=== PATIENT | female | born 1980 | race American Indian/Alaskan Native ===

== ENCOUNTER 2016-10-03 06:23 | Day surgery (SDC) | payer MEDICAID ==
[2016-10-03] MEDS ORDERED: WATER FOR IRRIG STERILE IR ONE (07:15)
[2016-10-03] MEDS ORDERED: DIPRIVAN 10 MG/ML IV ONE (07:20)
--- NOTE | 2016-10-03 07:21 | Anesthesia Consultation ---
Anesthesia Consult and Med Hx Date of service: 10/03/16 - Airway Anesthetic Teeth Evaluation: Good ROM Head & Neck: Adequate Mental/Hyoid Distance: Adequate Mallampati Class: Class II Intubation Access Assessment: Probably Good - Pulmonary Exam CTA: Yes - Cardiac Exam Cardiac Exam: RRR - Pre-Operative Health Status ASA Pre-Surgery Classification: ASA3 Proposed Anesthetic Plan: MAC - Central Nervous System Hx Back Pain: Yes - Gastrointestinal Hx Gastroesophageal Reflux Disease: Yes - Other Systems Hx Obesity: Yes
--- NOTE | 2016-10-03 07:22 | Anesthesia Day of Surgery ---
Anesthesia Day of Surgery - Day of Surgery Patient Examined: Yes Patient H&P Reviewed: Yes Patient is NPO: Yes
[2016-10-03] MEDS ORDERED: NACL 0.9% 1000 ML 1,000 ML IV SCH (08:00)
[2016-10-03] MEDS ORDERED: XYLOCAINE MPF 2% ONE (08:05)
[2016-10-03 08:48] VITALS: BP 133/69
--- NOTE | 2016-10-03 09:17 | Operative Report ---
ATTENDING SURGEON: Louis Harman M.D. YARDAGE CONTROL OPERATOR FORMING: Marty Barrera M.D. PREOPERATIVE DIAGNOSIS: Dyspepsia. POSTOPERATIVE DIAGNOSES: Hiatal hernia. PROCEDURE PERFORMED: Esophagogastroduodenoscopy. INDICATION FOR PROCEDURE: The patient is a 35-year-old female who is morbidly obese and undergoing workup for bariatric surgery. She complains of dyspepsia. After discussing risks and benefits of the procedure, she has had a consent for it. DESCRIPTION OF PROCEDURE: The patient was brought into the endoscopic suite, was placed on the stretcher in the left lateral position. MAC anesthesia was given by the anesthesia team. A timeout was called and the patient and procedure were correct, so we proceeded to start the endoscope into the patient's oropharynx and went down the esophagus into the stomach and traverse the pylorus into the first portion of the duodenum. As we retrieved the endoscope, we assess carefully the mucosa circumferentially. No gross abnormalities were visualized in the duodenum or stomach. Then, the endoscope was retroflexed and the fundus of the stomach and hiatus were examined. A small hiatal hernia was visualized. No other mucosal abnormalities were seen. Then, the endoscope with retrieved into the fundus of the stomach. At this point, the stomach was deflated and the endoscope was drift into the esophagus. Again, the EG junction was visualized above indentation of crura confirming a hiatal hernia type 1 and that the endoscope was completely retrieved from the esophagus into the oropharynx and out of the patient's mouth. This finalized the procedure. The patient tolerated very well the procedure and was sent to endoscopy recovery room. JOB# [id number] ARNOLD/MADELEINE CONNOR
--- NOTE | 2016-10-03 10:56 | Post Anesthesia Evaluation ---
- Post Anesthesia Evaluation Patient Participated: Yes Airway Patent: Yes Stable Respiratory Function: Yes Nausea/Vomiting: No Temp > 96.8F: Yes Pain Manageable: Yes Adequeate Hydration: Yes Anesthesia Complications: No Block Receding Appropriately: Not Applicable Patient on Ventilator: No
== END 2016-10-03 06:24 | disposition home or self-care (01) ==
LOC: GIO 06:23
PROVIDERS: ATTEND Specialist
DX: K44.9 Diaphragmatic hernia without obstruction or gangrene (principal); K21.9 Gastro-esophageal reflux disease without esophagitis; E11.9 Type 2 diabetes mellitus without complications; J45.909 Unspecified asthma, uncomplicated; F32.9 Major depressive disorder, single episode, unspecified; F41.9 Anxiety disorder, unspecified; E66.01 Morbid (severe) obesity due to excess calories; Z68.42 Body mass index [BMI] 45.0-49.9, adult; Z98.51 Tubal ligation status; Z98.890 Other specified postprocedural states; Z82.49 Family history of ischemic heart disease and other diseases of the circulatory system; Z83.3 Family history of diabetes mellitus; Z80.0 Family history of malignant neoplasm of digestive organs
CPT/HCPCS: 43235; 81025; 82962; J2704; J7030

== ENCOUNTER 2016-10-25 07:55 | Inpatient (IN) | payer MEDICAID ==
[2016-10-25 09:16] LABS: Basophils % (Auto) 0.4 % (0.0-1.8); Eosinophils % (Auto) 1.4 % (0.0-4.3); Hematocrit 37.2 % (30.3-42.9); Hemoglobin 11.9 gm/dl (10.1-14.3); Mean Corpuscular HGB Conc 32 % (30-34); Mean Corpuscular Hemoglobin 27 pg (28-32); Mean Corpuscular Volume 83 fl (79-97); Platelet Count 276 K/mm3 (140-440); Red Blood Count 4.46 M/mm3 (3.65-5.03); Red Cell Distribution Width 14.6 % (13.2-15.2); White Blood Count 9.9 K/mm3 (4.5-11.0)
[2016-10-25 09:36] LABS: Alanine Aminotransferase 13 units/L (7-56); Albumin 3.8 g/dL (3.9-5); Alkaline Phosphatase 121 units/L (35-129); Anion Gap 16 mmol/L; BUN/Creatinine Ratio 17.14; Bilirubin,Total 0.3 mg/dL (0.1-1.2); Blood Urea Nitrogen 12 mg/dL (7-17); Calcium 9.4 mg/dL (8.4-10.2); Carbon Dioxide 25 mmol/L (22-30); Glucose 114 mg/dL (65-100); Potassium 4.6 mmol/L (3.6-5.0); Sodium 138 mmol/L (137-145); Total Protein 7.7 g/dL (6.3-8.2)
--- NOTE | 2016-10-25 09:57 | Anesthesia Consultation ---
Anesthesia Consult and Med Hx Date of service: 10/31/16 - Airway Anesthetic Teeth Evaluation: Good ROM Head & Neck: Adequate Mental/Hyoid Distance: Adequate Mallampati Class: Class II Intubation Access Assessment: Good - Pulmonary Exam CTA: Yes - Cardiac Exam Cardiac Exam: No Murmur - Pre-Operative Health Status ASA Pre-Surgery Classification: ASA3 - Pulmonary Hx Asthma: Yes (PER PATIENT SHE DOESN'T HAVE IT) - Central Nervous System Hx Back Pain: Yes (HERNIATED DISC X3) - Gastrointestinal Hx Gastroesophageal Reflux Disease: Yes - Other Systems Hx Obesity: Yes
--- NOTE | 2016-10-27 11:01 | Admit Criteria Form ---
Admission Criteria Documentation: AMBULATORY SURGERY EXCEPTION CRITERIA Ambulatory Surgery Exception Criteria ( Place 'X' for any and all applicable criteria): Surgery or procedure performed on ambulatory basis may require inpatient stay for[A] ANY ONE of the following(1)(2)(3)(4)(5)(6)(7)(8)(9): [X] I. A preoperative situation, condition, or finding that warrants inpatient stay as indicated by ANY ONE of the following: [] a) Inpatient care needed because of severity of a disease or condition rather than the surgery (eg, severe cardiac or respiratory disease, severe infection) (15) (16 ) (17) (18) [] b) Emergent procedure (eg, angioplasty for acute ischemia)(19) [] c) Complex surgical approach or situation as indicated by ANY ONE of the following(3): [] i) Open approach needed instead of usual endoscopic, transcatheter, or other less invasive procedure [] ii) Difficult approach because of previous operation [] iii) Airway monitoring required after open neck procedures(20)(21) [] iv) Large mass requiring unusually extensive dissection [] v) Additional complicating feature requiring inpatient care (eg, drain management)(22(23): [X] d) Major surgery in a pt with high anesthetic risk as indicated by ANY ONE of the following (2)(3)(5)(7)(8): [X] i) ASA risk class III or higher (severe systemic disease impairing function) [D] [] ii) Advanced age (eg, older than 85 years)(14)(24) [] iii) Symptomatic heart failure(25) [] iv) Symptomatic asthma or COPD(8)(21) [] v) Morbid obesity with hemodynamic or respiratory problems(20)( 21)(26)(27) [] vi) Obstructive sleep apnea(20)(21) [] vii) Former premature infants who are younger than 60 weeks [] viii) High risk for severe postoperative abnormalities (eg, severe postoperative hypocalcemia after parathyroidectomy for severe hyperparathyroidism)(27)( 28) [] ix) Unstable angina(25) [] e) Drug-related risk requiring inpatient stay as indicated by ANY ONE of the following(5)(10)(14)(32)(33) [] i) Procedure requires discontinuing drugs or other therapy (eg , antiarrhythmic medication, antiseizure medication), which necessitates inpatient observation or treatment.(18)(31) [] ii) Major surgery and high risk drug use as indicated by ANY ONE of the following: [] 1) Active abuse of cocaine or similar drug [] 2) Monoamine oxidase inhibitor use [] 3) Other drug identified as posing risk [] f) Inadequate outpatient care situation as indicated by ANY ONE of the following(5)(10)(14)(32)(33) [] i) Patient lives remote from medical facility and procedure has urgent complication potential, and temporary nearby residence cannot be arranged [] ii) Patient will have postprocedure incapacitation and inadequate assistance at home, or alternative level of care cannot be arranged. [] iii) Patient will have long general anesthesia or procedure side effect resolution time, and competent person to stay with patient on first postoperative night at home or alternative level of care cannot be arranged. []iv) Other inadequate outpatient situation that cannot be handled by other means [] II. A perioperative event, condition, or finding that warrants inpatient stay as indicated by ANY ONE of the following (1)(2)(3): [] a) Inadequate physiologic recovery: cardiovascular, respiratory, or hemodynamic status not normal or near preoperative baseline(18) [] b) Hemodynamic instability [] c) Patient not alert with near normal or baseline mental status [] d) Temperature not normal or as expected and not appropriate for outpatient treatment of condition [] e) Ambulatory or appropriate activity level status not yet achieved post procedure [E](34)(35)(36) [] f) Operative site not appropriate (eg, unexpected or excessive drainage or bleeding) [] g) Postoperative effects not resolved or adequately managed (eg, significant pain or vomiting not appropriate for outpatient or next level of care)(10)(12) [] h) Complicating features requiring inpatient care as indicated by ANY ONE of the following(37): [] i) Severe complications of procedure (eg, bowel injury, airway compromise, vascular injury,severe hemorrhage) [] ii) Extensive (eg, dissection far beyond usual scope of procedure ) or prolonged (eg, 120 minutes beyond usual) surgery needed requiring inpatient postoperative care [] iii) Conversion to an open or complex procedure that requires inpatient care (eg, open vs laparoscopic cholecystectomy, abdominal vs vaginal hysterectomy)(38) [] iv) Comorbid condition or test result identified during or post procedure that requires inpatient care (7) [] v) Malignant hyperthermia(30) [] vi) Other complicating feature requiring inpatient care(22)(23) Inpatient stay may be needed until ALL of the following are present (1)(2)(3)(4) (5)(6)(10)(14)(33)(40): []a) Physiologic recovery: cardiovascular, respiratory, and hemodynamic status normal or near preoperative baseline []b) Hemodynamic stability []c) Patient alert, with near normal or baseline mental status []d) Temperature appropriate: patient afebrile or temperature appropriate for outpt treatment of condition []e) Activity level appropriate: ambulatory or appropriate activity level post procedure []f) Operative site appropriate as indicated by ALL of the following: []i) Site dry or with expected drainage []ii) Any blood noted is as expected for procedure. []g) Postoperative effects resolved or managed as indicated by ALL of the following: []i) Pain management appropriate for outpatient (or next level of) care(10) []ii) Minimal nausea and vomiting: if present, successfully treated with oral medication(12) []iii) Headache, dizziness, or drowsiness (if present) are mild. []h) Voiding status acceptable as indicated by ANY ONE of the following: []i) Voiding spontaneously []ii) No voiding but instructions given for follow-up in 6 to 8 hours []iii) Urinary catheter in place, and instructions given for follow-up []i) Complicating features requiring inpatient care manageable at a lower level of care(37) []j) Comorbid conditions manageable at a lower level of care(37) The original [employer] content created by [employer] has been revised. The portions of the content which have been revised are identified through the use of italic text or in bold, and [facility] [employer] has neither reviewed nor approved the modified material. All other unmodified content is copyright [employer]. Please see references footnoted in the original [employer] edition 2016 Admission Criteria Met: Yes
[2016-10-30] MEDS ORDERED: LACTATED RINGERS 1,000 ML IV SCH (20:00)
[2016-10-31] MEDS ORDERED: VERSED IV NR ×2 (06:00→09:00)
[2016-10-31] MEDS ORDERED: LACTATED RINGERS 1,000 ML IV SCH ×2 (06:00→09:00)
[2016-10-31] MEDS ORDERED: REGLAN IV NR ×2 (06:00→09:00)
[2016-10-31] MEDS ORDERED: TRANSDERM-SCOP TD NR ×2 (06:00→09:00)
[2016-10-31] MEDS ORDERED: PEPCID IV NR ×2 (06:00→09:00)
[2016-10-31] MEDS ORDERED: PEPCID PO NR (06:00)
[2016-10-31] MEDS ORDERED: FLAGYL 500 MG/100 ML 500 MG/100 ML BAG IV NR (08:00)
[2016-10-31] MEDS ORDERED: LOVENOX SUB-Q NR (08:00)
[2016-10-31] MEDS ORDERED: ANCEF/STERILE WATER 2 GM/20 ML 2 GM/20 ML SYRINGE IV NR (08:00)
[2016-10-31] MEDS ORDERED: PEPCID IV ONE (08:26)
[2016-10-31] MEDS ORDERED: REGLAN ONE (08:26)
[2016-10-31] MEDS ORDERED: DILAUDID ONE (08:47)
[2016-10-31] MEDS ORDERED: DIPRIVAN 10 MG/ML IV ONE (08:47)
[2016-10-31] MEDS ORDERED: ZEMURON IV ONE ×2 (08:47→10:23)
[2016-10-31] MEDS ORDERED: XYLOCAINE MPF 2% ONE (08:47)
[2016-10-31] MEDS ORDERED: TRANSDERM-SCOP TD SCH (09:00)
[2016-10-31] MEDS ORDERED: ZOFRAN ONE (09:54)
[2016-10-31] MEDS ORDERED: ROBINUL ONE (09:54)
[2016-10-31] MEDS ORDERED: NEOSTIGMINE ONE (09:54)
[2016-10-31] MEDS ORDERED: LOVENOX SUB-Q SCH (10:00)
[2016-10-31] MEDS ORDERED: ePHEDrine SULFATE ONE (10:33)
[2016-10-31] MEDS ORDERED: LACTATED RINGERS 1,000 ML ONE (10:49)
[2016-10-31] MEDS ORDERED: NEO SYNEPHRINE ONE (11:07)
[2016-10-31] MEDS ORDERED: NACL 0.9% 100 ML ONE (11:07)
[2016-10-31] MEDS ORDERED: XYLOCAINE 1% 20 mL INFILTRATI ONE (12:00)
[2016-10-31] MEDS ORDERED: MARCAINE-EPI 0.5%-1:200,000 INFILTRATI ONE (12:00)
[2016-10-31] MEDS ORDERED: NACL 0.9% IR ONE ×2 (12:00)
[2016-10-31] MEDS: DILAUDID IV PRN ×4 (12:25→13:00)
--- NOTE | 2016-10-31 12:50 | Anesthesia Day of Surgery ---
Anesthesia Day of Surgery - Day of Surgery Patient Examined: Yes Patient H&P Reviewed: Yes Patient is NPO: Yes
--- NOTE | 2016-10-31 12:56 | Post Anesthesia Evaluation ---
- Post Anesthesia Evaluation Patient Participated: Yes Airway Patent: Yes Stable Respiratory Function: Yes Nausea/Vomiting: No Temp > 96.8F: Yes Pain Manageable: Yes Adequeate Hydration: Yes Anesthesia Complications: No Block Receding Appropriately: Not Applicable
[2016-10-31] MEDS ORDERED: TORADOL IV PRN (13:30)
[2016-10-31] MEDS: MORPHINE IV PRN ×3 (14:53→23:44)
[2016-10-31 15:15] LABS: Alanine Aminotransferase 24 units/L (7-56); Albumin/Globulin Ratio 0.7 %; Alkaline Phosphatase 118 units/L (35-129); Anion Gap 22 mmol/L; Bilirubin,Total 0.2 mg/dL (0.1-1.2); Blood Urea Nitrogen 8 mg/dL (7-17); Calcium 8.8 mg/dL (8.4-10.2); Carbon Dioxide 16 mmol/L (22-30); Chloride 100.2 mmol/L (98-107); Glucose 131 mg/dL (65-100); Potassium 4.1 mmol/L (3.6-5.0); Sodium 134 mmol/L (137-145); Total Protein 7.4 g/dL (6.3-8.2)
[2016-10-31 15:52] LABS: Hemoglobin 11.7 gm/dl (10.1-14.3); Mean Corpuscular HGB Conc 32 % (30-34); Mean Corpuscular Hemoglobin 27 pg (28-32); Mean Corpuscular Volume 84 fl (79-97); Platelet Count 262 K/mm3 (140-440); Red Cell Distribution Width 14.4 % (13.2-15.2)
[2016-10-31 15:53] LABS: White Blood Count 20.6 K/mm3 (4.5-11.0)
[2016-10-31 17:13] LABS: Basophils % (Manual) 0 % (0.0-1.8); Blastocytes % (Manual) 0 %; Eosinophils % (Manual) 0 % (0.0-4.3)
[2016-10-31 17:14] LABS: Anisocytosis 1+; Diff Status Complete; Large Platelets Rare; Platelet Estimate Cons
[2016-10-31] MEDS: ZOFRAN IV PRN (18:45)
[2016-11-01] MEDS: MORPHINE IV PRN (04:59)
[2016-11-01] MEDS: ZOFRAN IV PRN ×2 (05:10→13:23)
[2016-11-01] MEDS: NORCO PO PRN ×2 (08:43→13:05)
[2016-11-01] MEDS ORDERED: LOVENOX SUB-Q SCH (10:00)
[2016-11-01 11:38] LABS: Alanine Aminotransferase 17 units/L (7-56); Albumin 3.2 g/dL (3.9-5); Albumin/Globulin Ratio 0.9 %; Alkaline Phosphatase 109 units/L (35-129); BUN/Creatinine Ratio 11.66; Bilirubin,Total 0.4 mg/dL (0.1-1.2); Blood Urea Nitrogen 7 mg/dL (7-17); Calcium 8.9 mg/dL (8.4-10.2); Carbon Dioxide 23 mmol/L (22-30); Chloride 100.8 mmol/L (98-107); Glucose 105 mg/dL (65-100); Potassium 3.8 mmol/L (3.6-5.0); Sodium 136 mmol/L (137-145); Total Protein 6.8 g/dL (6.3-8.2)
[2016-11-01 11:39] LABS: Anion Gap 16 mmol/L; Eosinophils % (Auto) 0.3 % (0.0-4.3); Hemoglobin 11.3 gm/dl (10.1-14.3); Mean Corpuscular HGB Conc 32 % (30-34); Mean Corpuscular Hemoglobin 27 pg (28-32); Mean Corpuscular Volume 84 fl (79-97); Platelet Count 252 K/mm3 (140-440); Red Blood Count 4.19 M/mm3 (3.65-5.03); Red Cell Distribution Width 14.2 % (13.2-15.2); White Blood Count 15.8 K/mm3 (4.5-11.0)
--- NOTE | 2016-11-01 12:20 | Discharge Summary ---
Providers - Providers Date of Admission: 10/31/16 06:22 Date of discharge: 11/01/16 Attending physician: JADE ELLIS Primary care physician: ERP IMPLEMENTATION CONSULTANT Hospitalization Reason for admission: overnight observation Condition: Stable Disposition: DISCHARGED TO HOME OR SELFCARE Core Measure Documentation - Palliative Care Palliative Care/ Comfort Measures: Not Applicable - Core Measures Any of the following diagnoses?: none Exam - Physical Exam Narrative exam: NAD Lungd CTA BL Heart RRR Abd, soft, some TTP around wounds. Wounds c/d/i Neuro AAOx3 - Constitutional Vitals: Temp Pulse Resp BP Pulse Ox 98.2 F 91 H 18 129/94 100 11/01/16 08:00 11/01/16 08:00 11/01/16 08:00 11/01/16 08:00 11/01/16 09:48 Plan Activity: advance as tolerated Diet: other (bariatric stage 1) Special Instructions: no heavy lifting Follow up with: PRIMARY CARE, [Primary Care Provider] - 7 Days
[2016-11-01 14:19] LABS: Magnesium 2.1 mg/dL (1.7-2.3); Phosphorous 4.6 mg/dL (2.5-4.5)
[2016-11-01 14:39] VITALS: BP 121/91
== END 2016-11-01 15:48 | disposition home or self-care (01) | DRG 327 ==
LOC: 3A 07:55 → UNDOADMIN 07:55 → 3A 10-31 06:22 → 2B-SURG 10-31 12:50
PROVIDERS: ADMIT Specialist; ATTEND Specialist
PROC: 0D194ZB Bypass Duodenum to Ileum, Percutaneous Endoscopic Approach (ICD-10-PCS; principal; 2016-11-01)
PROC: 0DB64Z3 Excision of Stomach, Percutaneous Endoscopic Approach, Vertical (ICD-10-PCS; principal; 2016-11-01)
PROC: 0BQS4ZZ (ICD-10-PCS; principal; 2016-11-01)
PROC: 0BQR4ZZ (ICD-10-PCS; principal; 2016-11-01)
PROC: 0D1B4ZB Bypass Ileum to Ileum, Percutaneous Endoscopic Approach (ICD-10-PCS; principal; 2016-11-01)
DX: K21.9 Gastro-esophageal reflux disease without esophagitis (principal); Z68.42 Body mass index [BMI] 45.0-49.9, adult; G47.30 Sleep apnea, unspecified; E66.01 Morbid (severe) obesity due to excess calories; J45.909 Unspecified asthma, uncomplicated; Z88.7 Allergy status to serum and vaccine; E11.9 Type 2 diabetes mellitus without complications; F32.9 Major depressive disorder, single episode, unspecified; K44.9 Diaphragmatic hernia without obstruction or gangrene
CPT/HCPCS: 36415; 80053; 81025; 82962; 83735; 84100; 84703; 85007; 85025; 88307; A4217; C9250; J0690; J1170; J1650; J1885; J2250; J2270; J2370; J2405; J2704; J2710; J2765; J7120

== ENCOUNTER 2016-11-01 22:08 | Emergency (ER) | payer MEDICAID ==
[2016-11-01 22:22] VITALS: BP 128/75
[2016-11-02] MEDS ORDERED: ZOFRAN ONE (01:51)
[2016-11-02] MEDS ORDERED: MORPHINE ONE (01:51)
[2016-11-02] MEDS ORDERED: DILAUDID ONE (03:39)
--- NOTE | 2016-11-02 05:52 | Emergency Department Report ---
HPI - General Chief Complaint: Abdominal Pain Time Seen by Provider: 11/02/16 01:40 - HPI HPI: This is a 35-year-old Afro-Italian female presents to the emergency department with complaint of generalized abdominal pain status post laparoscopic gastric sleeve surgery that occurred yesterday, Sunday. The patient has not taken any pain medication as she says she was not prescribed anything upon discharge. The surgery was done by Dr. Harman. She called the office of Dr. Harman and was told that she was supposed to get some pain medication written to her in preop, but she never did. She denies any fever. Patient says that the pain also radiates to her back. She says that she has been having this pain even prior to discharge from the hospital, which was earlier today. Her primary care doctor is a Dr. Brody. ED Past Medical Hx - Past Medical History Previous Medical History?: Yes Hx Diabetes: Yes Hx GERD: Yes Hx Arthritis: Yes (HIPS) Hx Headaches / Migraines: Yes (MIGAINES) Hx Asthma: Yes (PER PATIENT SHE DOESN'T HAVE IT) - Surgical History Past Surgical History?: Yes Additional Surgical History: s/p gastric sleeve 10/31/16 - Social History Smoking Status: Never Smoker Substance Use Type: None - Medications Home Medications: Home Medications Medication Instructions Recorded Confirmed Last Taken Type Gabapentin 800 mg PO TID 09/29/16 10/31/16 10/27/16 History Motrin 800 MG tab 800 mg PO TID 09/29/16 10/31/16 10/02/16 History Nortriptyline 75 mg PO DAILY 09/29/16 10/31/16 10/27/16 History Omeprazole 40 mg PO AC 09/29/16 10/31/16 10/28/16 History SEROquel 100 mg PO HS 09/29/16 10/31/16 10/24/16 History Vitamin B Complex 1 tab PO DAILY 09/29/16 10/31/16 10/24/16 History Vitamin C 1 tab PO DAILY 09/29/16 10/31/16 10/24/16 History metFORMIN 500 mg PO BID 09/29/16 10/31/16 10/24/16 History tiZANidine 4 mg PO TID 10/02/16 10/31/16 10/24/16 History ED Review of Systems ROS: Stated complaint: POST SURGERY PAIN Other details as noted in HPI Comment: All other systems reviewed and negative Constitutional: denies: chills, fever Eyes: denies: eye pain, eye discharge, vision change ENT: denies: ear pain, throat pain Respiratory: denies: cough, shortness of breath, wheezing Cardiovascular: denies: chest pain, palpitations Gastrointestinal: abdominal pain, nausea. denies: vomiting Genitourinary: denies: urgency, dysuria, discharge Musculoskeletal: back pain. denies: arthralgia Skin: denies: rash, lesions Neurological: denies: headache, weakness, paresthesias Physical Exam - Physical Exam Vital Signs: Vital Signs 11/01/16 22:15 Temperature 98.3 F Pulse Rate 97 H Respiratory 16 Rate Blood Pressure 128/75 O2 Sat by Pulse 100 Oximetry Physical Exam: GENERAL: The patient is well-developed well-nourished. HEENT: Normocephalic. Atraumatic. Extraocular motions are intact. Patient has moist mucous membranes. Pupils equal reactive to light bilaterally. NECK: Supple. Trachea is midline. CHEST/LUNGS: Clear to auscultation. There is no respiratory distress noted. HEART/CARDIOVASCULAR: Regular. There is no tachycardia. There is no gallop rub or murmur. ABDOMEN: Abdomen is soft. Patient has some generalized tenderness to palpation of the abdomen. The laparoscopic ports are seen but do not appear to show any signs of infection. Patient has normal bowel sounds. Morbidly obese habitus. SKIN: Warm and dry. NEURO: The patient is awake, alert, and oriented. The patient is cooperative. The patient has no focal neurologic deficits. The patient has normal speech. MUSCULOSKELETAL: There is no tenderness or deformity. There is no limitation range of motion. There is no evidence of acute injury. ED Course Vital Signs 11/01/16 22:15 Temperature 98.3 F Pulse Rate 97 H Respiratory 16 Rate Blood Pressure 128/75 O2 Sat by Pulse 100 Oximetry - Consultations Consultation #1: I spoke with the PA for Dr. Harman, the bariatric surgeon who did the gastric sleeve. She says that this patient has an appointment this morning at [address] Harman and they will be happy to write her for pain medication. They' re not concerned about the patient's leukocytosis. 11/02/16 07:06 ED Medical Decision Making - Radiology Data Radiology results: image reviewed interpreted by me: X-ray of the abdomen shows some nonspecific nonobstructive bowel gas. - Medical Decision Making 35-year-old female presents the emergency department with continued abdominal pain that is been going on since the patient had her laparoscopic gastric sleeve surgery a few days ago. The patient never got the pain medication that was supposed to be written for her from preop surgery. Patient was given a few doses of pain medication and is feeling improved. Her labs show a leukocytosis of 18,000 but the gastric surgery team is not concerned about this and feels that it is just reactive to the patient's recent surgery. Abdominal x-ray shows some nonspecific nonobstructive bowel gas. Patient has an appointment at 11 AM this morning with her bariatric surgeon. She will return to the ER with any worsening of her symptoms or any acute distress. Critical Care Time: No Critical care attestation.: If time is entered above; I have spent that time in minutes in the direct care of this critically ill patient, excluding procedure time. ED Disposition Clinical Impression: Postoperative pain Abdominal pain Qualifiers: Abdominal location: generalized Qualified Code(s): R10.84 - Generalized abdominal pain Disposition: DISCHARGED TO HOME OR SELFCARE Is pt being admited?: No Condition: Stable Instructions: Abdominal Pain (ED) Referrals: PRIMARY CAREMD [Primary Care Provider] - 3-5 Days Time of Disposition: 07:09
--- NOTE | 2016-11-02 07:23 | XRay Report ---
Flat and upright of abdomen: History: Abdominal pain. Findings: Moderate amount of air in small bowel with minimal air in large bowel. Multiple small air-fluid levels in small bowel. No radiopaque calculus or abnormal calcification. Impression: Probable incomplete small bowel obstruction.
== END 2016-11-02 04:35 | disposition home or self-care (01) ==
LOC: ED 22:08
DX: R10.84 Generalized abdominal pain (principal); G89.18 Other acute postprocedural pain; E11.9 Type 2 diabetes mellitus without complications; K21.9 Gastro-esophageal reflux disease without esophagitis; G43.909 Migraine, unspecified, not intractable, without status migrainosus; J45.909 Unspecified asthma, uncomplicated
CPT/HCPCS: 74020; 99283; J1170; J2270; J2405

== ENCOUNTER 2016-12-26 06:20 | Day surgery (SDC) | payer MEDICAID ==
[2016-12-26] MEDS ORDERED: NACL 0.9% 1000 ML 1,000 ML IV SCH (08:00)
[2016-12-26] MEDS ORDERED: ZOFRAN IV NR (08:00)
[2016-12-26] MEDS ORDERED: ZOFRAN IV ONE (08:09)
[2016-12-26] MEDS ORDERED: DIPRIVAN 10 MG/ML IV ONE ×2 (09:02→09:03)
[2016-12-26] MEDS ORDERED: XYLOCAINE 2% INFILTRATI ONE (09:03)
--- NOTE | 2016-12-26 09:23 | Anesthesia Consultation ---
Anesthesia Consult and Med Hx Date of service: 12/26/16 - Airway Anesthetic Teeth Evaluation: Good ROM Head & Neck: Adequate Mental/Hyoid Distance: Adequate Mallampati Class: Class II Intubation Access Assessment: Probably Good - Pulmonary Exam CTA: Yes - Cardiac Exam Cardiac Exam: RRR - Pre-Operative Health Status ASA Pre-Surgery Classification: ASA4 Proposed Anesthetic Plan: MAC - Pulmonary Hx Asthma: Yes (PER PATIENT SHE DOESN'T HAVE IT) COPD: No - Central Nervous System Hx Back Pain: Yes (HERNIATED DISC X3) - Gastrointestinal Hx Gastroesophageal Reflux Disease: Yes - Other Systems Hx Obesity: Yes - Additional Comments Anesthesia Medical History Comments: Currently has blood clot in right arm. N/V and cant eat, food sits and comes back up. SBO on the 31 of october. aneurys, chronic pain disorder, arthritis both hips
--- NOTE | 2016-12-26 09:23 | Anesthesia Day of Surgery ---
Anesthesia Day of Surgery - Day of Surgery Patient Examined: Yes Patient H&P Reviewed: Yes Patient is NPO: Yes
[2016-12-26] MEDS ORDERED: WATER FOR IRRIG STERILE IR ONE (11:58)
[2016-12-26 13:02] VITALS: BP 146/76
--- NOTE | 2016-12-26 14:31 | Operative Report ---
Operative Report Operative Report: OPERATIVE REPORT - EGD DATE 12/26/2016 SURGERY: Upper endoscopy. SURGEON: Louis Harman MD PET CAREGIVER: Marty Barrera MD PRE OP DX: dysphagia POST OP DX: same TYPE OF ANESTHESIA: MAC. ESTIMATED BLOOD LOSS: None. COMPLICATIONS: None. SPECIMENS REMOVED: None. FINDINGS: 1. Sleeve gastrectomy and single loop duodeno-jejunostomy 2. Otherwise, normal esophagus, stomach and post pyloric area INDICATIONS:INDICATION FOR PROCEDURE: Patient is a 26-year-old female with a history of morbid obesity and recent SIPS procedure. She has been complaining of some dysphagia to solids but able to take fluids. Here for diagnostic EGD PROCEDURE DETAILS: After consent was reviewed, patient was taken back to the operating room where patient was placed in the left lateral decubitus position and a bite block was placed in the mouth. After a time-out was called, MAC anesthesia was initiated. I then passed the endoscope into her oropharynx, into her esophagus, visualized the entire esophagus, which was all within normal limits. I then visualized the stomach and the first portion of the duodenum with loop duodeno-jejunostomy and there were no abnormalities I could clearly visualize except for normal sleeve anatomy with some acute angulation at the level of the incisura angularis. Easy passage of scope aling the sleeve and past duodeno-jejunostomy which appears patent I then desufflated the stomach and removed the endoscope. Patient tolerated procedure well and was transferred to recovery room in good and stable condition.
--- NOTE | 2016-12-26 14:32 | Discharge Summary ---
Providers - Providers Date of discharge: 12/26/16 Attending physician: JADE ELLIS Primary care physician: CHAPARRO NEAL Hospitalization Reason for admission: outpateint EGD Condition: Stable Procedures: EGD Disposition: DISCHARGED TO HOME OR SELFCARE Core Measure Documentation - Palliative Care Palliative Care/ Comfort Measures: Not Applicable - Core Measures Any of the following diagnoses?: none Exam - Physical Exam Narrative exam: unchanged from preop - Constitutional Vitals: Temp Pulse Resp BP Pulse Ox 98.8 F 78 16 146/76 100 12/26/16 12:29 12/26/16 12:59 12/26/16 12:59 12/26/16 12:59 12/26/16 12:59 Plan Activity: advance as tolerated Diet: low carbohydrate Special Instructions: no heavy lifting Follow up with: CHAPARRO NEAL MD [Primary Care Provider] - 7 Days
== END 2016-12-26 06:21 | disposition home or self-care (01) ==
LOC: GIO 06:20
PROVIDERS: ATTEND Specialist
DX: R13.10 Dysphagia, unspecified (principal); J45.909 Unspecified asthma, uncomplicated; E11.9 Type 2 diabetes mellitus without complications; K21.9 Gastro-esophageal reflux disease without esophagitis; E66.01 Morbid (severe) obesity due to excess calories; Z90.3 Acquired absence of stomach [part of]
CPT/HCPCS: 43235; 81025; 96374; J2405; J2704; J7030

== ENCOUNTER 2017-02-27 06:25 | Day surgery (SDC) | payer MEDICAID ==
[2017-02-27] MEDS ORDERED: WATER FOR IRRIG STERILE IR ONE (06:59)
[2017-02-27] MEDS ORDERED: NACL 0.9% 1000 ML 1,000 ML IV SCH (07:00)
[2017-02-27] MEDS ORDERED: DIPRIVAN 10 MG/ML IV ONE ×4 (07:15→08:35)
[2017-02-27] MEDS ORDERED: XYLOCAINE 2% INFILTRATI ONE (07:16)
--- NOTE | 2017-02-27 07:31 | Anesthesia Consultation ---
Anesthesia Consult and Med Hx Date of service: 02/27/17 - Airway Anesthetic Teeth Evaluation: Good ROM Head & Neck: Adequate Mental/Hyoid Distance: Inadequate Mallampati Class: Class III Intubation Access Assessment: Possibly Difficult - Pulmonary Exam CTA: Yes - Cardiac Exam Cardiac Exam: RRR - Pre-Operative Health Status ASA Pre-Surgery Classification: ASA3 Proposed Anesthetic Plan: MAC - Pulmonary Hx Smoking: No COPD: No - Cardiovascular System Hx Hypertension: No - Central Nervous System Hx Neuromuscular Disorder: Yes (fibromyalgia) Hx Back Pain: Yes (HERNIATED DISC X3, edema BLE) - Gastrointestinal Hx Gastroesophageal Reflux Disease: Yes - Endocrine Hx Insulin Dependent Diabetes: No - Hematic Hx Anemia: Yes - Other Systems Hx Alcohol Use: No Hx Substance Use: No Hx Cancer: No Hx Obesity: Yes
--- NOTE | 2017-02-27 07:31 | Anesthesia Day of Surgery ---
Anesthesia Day of Surgery - Day of Surgery Patient Examined: Yes Patient H&P Reviewed: Yes Patient is NPO: Yes
[2017-02-27] MEDS ORDERED: PEPCID IV ONE (07:55)
[2017-02-27] MEDS ORDERED: VERSED ONE (07:59)
[2017-02-27] MEDS ORDERED: SUBLIMAZE ONE (08:00)
[2017-02-27] MEDS ORDERED: ROBINUL ONE ×3 (08:21→08:54)
[2017-02-27] MEDS ORDERED: QUELICIN ONE (08:22)
[2017-02-27] MEDS ORDERED: ZEMURON IV ONE (08:22)
[2017-02-27] MEDS ORDERED: DECADRON ONE (08:31)
[2017-02-27] MEDS ORDERED: ZOFRAN ONE (08:31)
[2017-02-27] MEDS ORDERED: BREVIBLOC IV ONE (08:41)
[2017-02-27] MEDS ORDERED: NEOSTIGMINE ONE (08:54)
--- NOTE | 2017-02-27 09:21 | Discharge Summary ---
Providers - Providers Date of discharge: 02/27/17 Attending physician: JADE ELLIS Primary care physician: CHAPARRO NEAL Hospitalization Reason for admission: outpatiend endoscopic dilation of gastric sleeve Condition: Stable Disposition: DC-01 TO HOME OR SELFCARE Core Measure Documentation - Palliative Care Palliative Care/ Comfort Measures: Not Applicable - Core Measures Any of the following diagnoses?: none Exam - Physical Exam Narrative exam: unchanged from preop - Constitutional Vitals: Temp Pulse Resp BP Pulse Ox 97.6 F 90 18 126/81 98 02/27/17 07:46 02/27/17 07:46 02/27/17 07:46 02/27/17 07:46 02/27/17 07:46 Plan Activity: advance as tolerated Diet: low carbohydrate Follow up with: CHAPARRO NEAL MD [Primary Care Provider] - 7 Days
[2017-02-27] MEDS ORDERED: DILAUDID ONE ×3 (09:28→10:41)
[2017-02-27] MEDS: DILAUDID IV PRN ×4 (10:00→10:55)
[2017-02-27] MEDS ORDERED: TORADOL ONE (10:58)
[2017-02-27] MEDS ORDERED: TORADOL IV ONE (11:00)
--- NOTE | 2017-02-27 11:20 | Fluoroscopy Report ---
FLUOROSCOPY ESOPHAGEAL DILATATION History: Gastric sleeve stricture. Findings: Fluoroscopy was provided by radiology during esophageal dilatation by Dr. Barrera. 3 fluoroscopic images were captured and which demonstrates placement of a balloon dilatation catheter near the GE junction. Please correlate with the procedural notes. Impression: Successful esophageal dilatation under fluoroscopy.
[2017-02-27 11:49] VITALS: BP 121/78
--- NOTE | 2017-02-27 16:02 | Operative Report ---
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 POSTOPERATIVE DIAGNOSIS: [place] stricture of gastric sleeve. OPERATION PERFORMED: Endoscopic balloon dilation of gastric sleeve stricture under fluoroscopic guidance. INDICATION FOR PROCEDURE: The patient is a 36-year-old female underwent a sleeve plus procedure laparoscopically around October this year and subsequently she developed dysphagia and reflux regurgitation of ingested food. 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 After discussing risks and benefits of the procedure, she signed the consent for it. DESCRIPTION OF PROCEDURE: The patient was brought to the operating room and placed on the operating table in supine position. General endotracheal tube anesthesia was given by the Anesthesia Team. Then we proceeded to place bite block and timeout was called, the patient and procedure were correct. Then we proceeded to pass the endoscope into the esophagus. The patient's stomach visualizing the helix type of stricture on the gastric sleeve. We passed the pylorus and we reached the duodenojejunostomy. The duodenojejunostomy appeared wide open and no stricturing at that level. The efferent limb looked normal, so then we slowly retrieved the endoscope, visualizing the distal portion of the helix stricture and using fluoroscopic guidance, we marked that with a paperclip on the patient's abdomen. Then, we proceeded to retrieve the endoscope for up into the proximal level of this helix stricture, which was closed to EG junction and we also marked that with a paperclip. We noticed that it was approximately 10 cm length, so we proceeded to advance the endoscope again into the efferent limb and passed a Savary wire through the channel of the endoscope, then the endoscope was removed, leaving the wire in place, then over a wire, we passed a Rigiflex II [employer] balloon dilator 3 cm in size and 10 cm long, confirmed under fluoroscopic guidance when the balloon was in the appropriate position or the wanted position, we proceeded to inflate up to 20 PSI and leave it inflated for 60 seconds and then the balloon was deflated, retrieved and the endoscope was passed again. We noticed mild blanching of the area due to the expected mucosal ischemia confirming appropriate dilation. Then we proceeded to do the same maneuver passing the endoscope without wire and floating the balloon again into the correct position or under fluoroscopic guidance and we proceeded to dilate it one more time, then the balloon was deflated after one minute and it was retrieved and everything was confirmed to be blanching as well. A third dilation was performed in the same manner. After doing these, there was no active bleeding of that mucosa and just a mild ecchymosis and at this time we completed the dilations, we retrieved the balloon, the endoscope and the bite block. The patient tolerated very well the procedure, and was sent to recovery room. The attending, Dr. Harman was present throughout the garcia portion of procedure. Instrument and lap count was correct x 2.
== END 2017-02-27 06:26 | disposition home or self-care (01) ==
LOC: GIO 06:25
PROVIDERS: ATTEND Specialist
DX: K95.89 Other complications of other bariatric procedure (principal); K21.9 Gastro-esophageal reflux disease without esophagitis; D64.9 Anemia, unspecified; E66.9 Obesity, unspecified; Z68.37 Body mass index [BMI] 37.0-37.9, adult; Z86.718 Personal history of other venous thrombosis and embolism; Z88.8 Allergy status to other drugs, medicaments and biological substances; Z88.7 Allergy status to serum and vaccine; Z91.09 Other allergy status, other than to drugs and biological substances; Y83.2 Surgical operation with anastomosis, bypass or graft as the cause of abnormal reaction of the patient, or of later complication, without mention of misadventure at the time of the procedure
CPT/HCPCS: 43245; 74360; 81025; C1726; J0330; J1100; J1170; J1885; J2250; J2405; J2704; J2710; J3010; J7030

== ENCOUNTER 2017-06-10 23:40 | Emergency (ER) | payer MEDICAID ==
[2017-06-11 00:30] LABS: Basophils % (Auto) 0.4 % (0.0-1.8); Eosinophils % (Auto) 2.1 % (0.0-4.3); Hematocrit 30.8 % (30.3-42.9); Hemoglobin 9.8 gm/dl (10.1-14.3); Mean Corpuscular HGB Conc 32 % (30-34); Mean Corpuscular Volume 77 fl (79-97); Platelet Count 291 K/mm3 (140-440); Red Blood Count 4.01 M/mm3 (3.65-5.03); White Blood Count 10.9 K/mm3 (4.5-11.0)
[2017-06-11 00:31] LABS: Mean Corpuscular Hemoglobin 24 pg (28-32)
[2017-06-11 00:38] LABS: Alanine Aminotransferase 12 units/L (7-56); Albumin 3.3 g/dL (3.9-5); Albumin/Globulin Ratio 0.9 %; Alkaline Phosphatase 122 units/L (35-129); Anion Gap 19 mmol/L; BUN/Creatinine Ratio 8; Blood Urea Nitrogen 3 mg/dL (7-17); Calcium 9.1 mg/dL (8.4-10.2); Carbon Dioxide 24 mmol/L (22-30); Chloride 98.3 mmol/L (98-107); Glucose 88 mg/dL (65-100); Lipase 46 units/L (13-60); Potassium 3.4 mmol/L (3.6-5.0); Sodium 138 mmol/L (137-145); Total Protein 7.1 g/dL (6.3-8.2)
[2017-06-11 01:26] LABS: Bilirubin,Urine NEG (Negative); Blood,Urine NEG (Negative); Ketones,Urine 20 mg/dL (Negative); Leukocyte Esterase,Urine TR (Negative); Mucus,Urine 2+ /HPF; Nitrite,Urine NEG (Negative); Protein,Urine <15 mg/dL mg/dL (Negative); Urobilinogen,Urine < 2.0 mg/dL (<2.0)
[2017-06-11] MEDS ORDERED: ZOFRAN ODT ONE (04:08)
[2017-06-11] MEDS ORDERED: ZOFRAN ODT PO ONE (04:09)
[2017-06-11] MEDS ORDERED: ZOFRAN IV ONE ×3 (06:17→13:03)
[2017-06-11] MEDS ORDERED: NACL 0.9% 1000 ML 1,000 ML IV ONE (06:17)
[2017-06-11] MEDS ORDERED: MORPHINE IV ONE ×3 (06:17→11:39)
--- NOTE | 2017-06-11 06:22 | Emergency Department Report ---
ED Abdominal Pain HPI - General Chief Complaint: Abdominal Pain Stated Complaint: INCISION LEAKING,ABDOMINAL PAIN Time Seen by Provider: 06/11/17 06:03 Source: patient Mode of arrival: Ambulatory Limitations: No Limitations - History of Present Illness Initial Comments: 36-year-old female with recent gastric sleeve revision done by Dr. Harman here at [facility] with complaint of diffuse lower abdominal pain nausea vomiting. Patient states she is discharged from the hospital on Sunday. Over the weekend she continued to have trouble keeping any food down. Denies fevers chills nausea vomiting. She complains some blistering around the surgical sites. MD Complaint: abdominal pain -: Gradual, days(s) (2) Location: diffuse, LLQ, RLQ Radiation: none Migration to: no migration Severity: moderate Severity scale (0 -10): 10 Quality: aching Improves With: nothing Worsens With: nothing Context: recent surgery/procedure Associated Symptoms: nausea, vomiting. denies: diarrhea, fever, chills, constipation, dysuria, hematemesis - Related Data Home Medications Medication Instructions Recorded Confirmed Last Taken Acetaminophen with Codeine 5 ml PO PRN PRN 06/01/17 06/11/17 Unknown [Acetaminop-Codeine 120-12 mg/5] Cyclobenzaprine [Flexeril] 10 mg PO TID PRN 06/01/17 06/11/17 Unknown Ferrous Sulfate [Ferrous Sulfate] 325 mg PO DAILY 06/01/17 06/11/17 Unknown Previous Rx's Medication Instructions Recorded Last Taken Type Ondansetron [Zofran Odt] 4 mg PO TID #10 tab.rapdis 06/11/17 Unknown Rx Promethazine [Phenergan TAB] 25 mg PO Q8HR PRN #15 tab 06/11/17 Unknown Rx Allergies Allergy/AdvReac Type Severity Reaction Status Date / Time Tetanus Vaccines and Toxoid Allergy Intermediate Rash, Verified 06/01/17 14:25 [Tetanus Vaccines & Toxoid] Swelling adhesive tape Allergy Rash Verified 06/01/17 14:25 metoclopramide HCl Allergy AGITATED,VIOLENT Verified 06/01/17 14:25 [From Reglan] FEELINGS FAT LIPIDS Allergy Mild Vomiting Uncoded 12/26/16 07:59 ED Review of Systems ROS: Stated complaint: INCISION LEAKING,ABDOMINAL PAIN Other details as noted in HPI Comment: All other systems reviewed and negative Constitutional: weakness. denies: chills, fever Respiratory: denies: cough, orthopnea Cardiovascular: denies: chest pain, palpitations Gastrointestinal: abdominal pain, nausea, vomiting. denies: diarrhea, constipation, hematemesis, melena, hematochezia Genitourinary: denies: urgency, dysuria Musculoskeletal: denies: back pain Skin: denies: rash, lesions ED Past Medical Hx - Past Medical History Previous Medical History?: Yes Hx Hypertension: No Hx Diabetes: No Hx Deep Vein Thrombosis: Yes (Right arm) Hx GERD: Yes Hx Arthritis: Yes (Bilateral hip, L ankle) Hx Headaches / Migraines: Yes (MIGAINES) Hx Asthma: Yes (PER PATIENT SHE DOESN'T HAVE IT) Hx COPD: No Hx HIV: No Additional medical history: Gastric sleeve October 2016. Distant history of tubal ligation - Surgical History Past Surgical History?: Yes Additional Surgical History: s/p gastric sleeve 10/31/16 - Family History Family history: no significant - Social History Smoking Status: Never Smoker Substance Use Type: None - Medications Home Medications: Home Medications Medication Instructions Recorded Confirmed Last Taken Type Acetaminophen with Codeine 5 ml PO PRN PRN 06/01/17 06/11/17 Unknown History [Acetaminop-Codeine 120-12 mg/5] Cyclobenzaprine [Flexeril] 10 mg PO TID PRN 06/01/17 06/11/17 Unknown History Ferrous Sulfate [Ferrous Sulfate] 325 mg PO DAILY 06/01/17 06/11/17 Unknown History Ondansetron [Zofran Odt] 4 mg PO TID #10 tab.rapdis 06/11/17 Unknown Rx Promethazine [Phenergan TAB] 25 mg PO Q8HR PRN #15 tab 06/11/17 Unknown Rx ED Physical Exam - General Limitations: No Limitations General appearance: alert, in no apparent distress, obese - Head Head exam: Present: atraumatic, normocephalic - Eye Eye exam: Present: normal appearance. Absent: scleral icterus, conjunctival injection Pupils: Present: normal accommodation - ENT ENT exam: Present: mucous membranes dry - Neck Neck exam: Absent: lymphadenopathy - Respiratory Respiratory exam: Present: normal lung sounds bilaterally. Absent: respiratory distress, wheezes - Cardiovascular Cardiovascular Exam: Present: regular rate, normal rhythm. Absent: systolic murmur, diastolic murmur, rubs, gallop - GI/Abdominal GI/Abdominal exam: Present: soft, tenderness, guarding (mild voluntary), normal bowel sounds, other (multiple well-healed surgical incisions, 2 have blistering that do not appear infected). Absent: distended, rebound - Extremities Exam Extremities exam: Present: normal inspection - Back Exam Back exam: Present: normal inspection - Neurological Exam Neurological exam: Present: alert, oriented X3 - Psychiatric Psychiatric exam: Present: normal affect, normal mood - Skin Skin exam: Present: warm, dry, intact, normal color. Absent: rash ED Course Vital Signs 06/10/17 06/11/17 06/11/17 23:49 04:14 04:15 Temperature 97.9 F 98.6 F 98.6 F Pulse Rate 94 H 92 H 92 H Respiratory 17 20 20 Rate Blood Pressure 136/87 137/88 Blood Pressure 137/88 [Right] O2 Sat by Pulse 99 100 100 Oximetry 06/11/17 06/11/17 06/11/17 06:17 07:48 07:54 Temperature 98.6 F Pulse Rate 94 H 90 Respiratory 18 18 20 Rate Blood Pressure Blood Pressure 134/79 138/91 [Right] O2 Sat by Pulse 100 100 Oximetry 06/11/17 06/11/17 06/11/17 08:18 10:15 11:35 Temperature Pulse Rate 88 Respiratory 18 16 16 Rate Blood Pressure Blood Pressure 120/96 [Right] O2 Sat by Pulse 100 Oximetry 06/11/17 06/11/17 06/11/17 11:39 12:00 13:00 Temperature 98.5 F Pulse Rate 84 84 Respiratory 18 16 16 Rate Blood Pressure Blood Pressure 119/75 120/74 [Right] O2 Sat by Pulse 100 99 Oximetry ED Medical Decision Making - Lab Data Result diagrams: 06/10/17 23:58 06/10/17 23:58 Laboratory Results - last 24 hr 06/10/17 06/10/17 06/11/17 23:58 23:58 00:40 WBC 10.9 RBC 4.01 Hgb 9.8 L Hct 30.8 D MCV 77 L MCH 24 L MCHC 32 RDW 17.0 H Plt Count 291 Lymph % (Auto) 24.7 [place] % (Auto) 5.6 Eos % (Auto) 2.1 Baso % (Auto) 0.4 Lymph # 2.7 [place] # 0.6 Eos # 0.2 Baso # 0.0 Seg Neutrophils % 67.2 Seg Neutrophils # 7.3 Sodium 138 Potassium 3.4 L Chloride 98.3 Carbon Dioxide 24 Anion Gap 19 BUN 3 L Creatinine 0.4 L Estimated GFR > 60 BUN/Creatinine Ratio 8 Glucose 88 Calcium 9.1 Total Bilirubin 0.40 AST 24 ALT 12 Alkaline Phosphatase 122 Total Protein 7.1 Albumin 3.3 L Albumin/Globulin Ratio 0.9 Lipase 46 Urine Color Yellow Urine Turbidity Clear Urine pH 7.0 Ur Specific [place] 1.014 Urine Protein <15 mg/dl Urine Glucose (UA) Neg Urine Ketones 20 Urine Blood Neg Urine Nitrite Neg Urine Bilirubin Neg Urine Urobilinogen < 2.0 Ur Leukocyte Esterase Tr Urine WBC (Auto) 12.0 H Urine RBC (Auto) 3.0 U Epithel Cells (Auto) 15.0 H Hyaline Casts 10 Urine Mucus 2+ - Medical Decision Making 36-year-old female here with complaint of abdominal pain. Patient had recent surgery, gastric sleeve revision. She appears mildly dehydrated. Her labs show that she is likely hemoconcentrated. Plan to hydrate and treat with Zofran and pain medications. Plan discussed case with surgeon. She is likely having a reaction to adhesive tape at the surgical sites but the cause of her abdominal pain is a little less clear. Most likely postsurgical. Discussed with surgical PA communications systems engineer. Plan to hydrate the patient treat pain and nausea here in the emergency department and then will have the patient follow- up in the office today. At this point I do not see any need to perform a CT scan. Portions of this chart were dictated with dictation software. There may be dictation errors contained within this note. Critical care attestation.: If time is entered above; I have spent that time in minutes in the direct care of this critically ill patient, excluding procedure time. ED Disposition Clinical Impression: Abdominal pain, Nausea Disposition: DC-01 TO HOME OR SELFCARE Is pt being admited?: No Condition: Stable Instructions: Abdominal Pain (ED) Additional Instructions: Please follow-up with your surgeon tomorrow. Prescriptions: Ondansetron [Zofran Odt] 4 mg PO TID #10 tab.rapdis Promethazine [Phenergan TAB] 25 mg PO Q8HR PRN #15 tab PRN Reason: Nausea Referrals: CHAPARRO NEAL MD [Primary Care Provider] - 3-5 Days
[2017-06-11] MEDS ORDERED: BENADRYL IV ONE (07:49)
[2017-06-11] MEDS ORDERED: NACL ONE (10:15)
--- NOTE | 2017-06-11 11:20 | Cat Scan Report ---
CT ABDOMEN AND PELVIS WITH CONTRAST INDICATION: Abdominal pain, post surgical. COMPARISON: 02/08/2017. FINDINGS: Abdomen and pelvis CT performed following intravenous administration of 100 cc of Omnipaque 300. LUNG BASES: Right hemidiaphragm slightly elevated. Mild bibasilar atelectasis. Slight nonspecific distal esophageal prominence. ABDOMEN: Approximately 6 mm right hepatic dome hypodensity anteriorly, axial image 9, series 2 in location of prior probable lipoma. Otherwise unremarkable liver, spleen, gallbladder, adrenals, aorta, IVC and kidneys. Subtle fat stranding about the pancreatic head may extend to the raúl hepatis. Unremarkable pancreatic body and tail. No ascites or significant adenopathy. Nonopacified GI tract evaluation limited, though grossly nonobstructive. Stable gastric bypass changes. PELVIS: Tubal ligation clips again noted unilaterally in the right adnexa for which HEALTHCARE FACILITY ADMINISTRATOR correlation may be obtained, as appropriate. Uterus, left adnexa and the urinary bladder within normal limits. Small pelvic free fluid measuring 23 HU. Mild rectosigmoid stool. No size significant adenopathy. Lower thoracic spine degenerative spurring. CONCLUSION: 1. Subtle peripancreatic head fat stranding/acute pancreatitis not excluded, as described. Please also correlate clinically and with laboratory values. 2. Mild bibasilar atelectasis. 3. Various other incidental findings, including stable iatrogenic changes, as above. Thank you for the opportunity to participate in this patient's care.
[2017-06-11] MEDS ORDERED: MORPHINE ONE (11:35)
[2017-06-11] MEDS ORDERED: REGLAN IV ONE (12:57)
[2017-06-11 15:54] VITALS: BP 128/81
[2017-06-11] MEDS ORDERED: BENADRYL PO ONE ×2 (16:01→16:06)
== END 2017-06-11 16:14 | disposition home or self-care (01) ==
LOC: ED 23:40
DX: R10.84 Generalized abdominal pain (principal); R11.0 Nausea; I82.621 Acute embolism and thrombosis of deep veins of right upper extremity; K21.9 Gastro-esophageal reflux disease without esophagitis; M19.90 Unspecified osteoarthritis, unspecified site; Z88.8 Allergy status to other drugs, medicaments and biological substances; J45.909 Unspecified asthma, uncomplicated
CPT/HCPCS: 36415; 74177; 80053; 81001; 83690; 85025; 96361; 96374; 96375; 96376; 99284; J1200; J2270; J2405; J2765; J7030; Q9967; Q0162

== ENCOUNTER 2017-07-23 08:57 | Emergency (ER) | payer MEDICAID ==
--- NOTE | 2017-07-23 16:04 | Emergency Department Report ---
Chief Complaint: Laceration/Recheck/Suture Stated Complaint: POST OP SWELLING/PAIN Time Seen by Provider: 07/23/17 16:00 - HPI History of Present Illness: Patient that is S/P bilateral breast reduction 07/10/17 presents to ED today with c/o right sided breast swelling and pain along the incision x 4 days; denies fevers, but admits she had scant drainage today; has spoken with her surgeon and was told to come to ED for US-guided drain placement - ROS Review of Systems: Negative except for those stated in HPI - Exam Vital Signs: Vital Signs 07/23/17 09:11 Temperature 98.4 F Pulse Rate 94 H Respiratory 16 Rate Blood Pressure 122/70 O2 Sat by Pulse 100 Oximetry Physical Exam: NAD Right breast (Supply Cataloguer present) - edema present towards lower lateral aspect of incision, TTP, no active bleeding or drainage MSE screening note: Focused history and physical exam performed. Due to findings the following was ordered: Bloodwork Patient to be seen by provider in Main ED ED Disposition for MSE Condition: Stable Referrals: WANG GAMINO [Other] - 3-5 Days
[2017-07-23 16:16] LABS: Basophils % (Auto) 0.5 % (0.0-1.8); Eosinophils % (Auto) 1.7 % (0.0-4.3); Hematocrit 26.4 % (30.3-42.9); Hemoglobin 8.4 gm/dl (10.1-14.3); Mean Corpuscular HGB Conc 32 % (30-34); Mean Corpuscular Volume 79 fl (79-97); Platelet Count 309 K/mm3 (140-440); Red Blood Count 3.34 M/mm3 (3.65-5.03); White Blood Count 9.4 K/mm3 (4.5-11.0)
[2017-07-23 16:18] LABS: Mean Corpuscular Hemoglobin 25 pg (28-32)
[2017-07-23 16:32] LABS: Anion Gap 17 mmol/L; BUN/Creatinine Ratio 22; Blood Urea Nitrogen 11 mg/dL (7-17); Calcium 8.6 mg/dL (8.4-10.2); Carbon Dioxide 25 mmol/L (22-30); Chloride 103.5 mmol/L (98-107); Glucose 90 mg/dL (65-100); Potassium 3.4 mmol/L (3.6-5.0); Sodium 142 mmol/L (137-145)
[2017-07-23] MEDS ORDERED: MORPHINE IM ONE (20:19)
[2017-07-23] MEDS ORDERED: ZOFRAN IM ONE (20:19)
--- NOTE | 2017-07-23 20:24 | Emergency Department Report ---
ED General Adult HPI - General Chief complaint: Laceration/Recheck/Suture Stated complaint: POST OP SWELLING/PAIN Time Seen by Provider: 07/23/17 20:12 Source: patient Mode of arrival: Ambulatory Limitations: No Limitations - History of Present Illness Initial comments: Patient is a 36-year-old female came today for evaluation of right breast. Patient stated that she had bilateral breast reduction on July [address] Delarosa, she stated since yesterday she had minor drainage on the right side with tenderness and swelling. She called Dr. Delarosa and asked her to come to the ER for evaluation. She denied any fever nausea or vomiting. - Related Data Home Medications Medication Instructions Recorded Confirmed Last Taken Acetaminophen with Codeine 5 ml PO PRN PRN 06/01/17 06/11/17 Unknown [Acetaminop-Codeine 120-12 mg/5] Cyclobenzaprine [Flexeril] 10 mg PO TID PRN 06/01/17 06/11/17 Unknown Ferrous Sulfate [Ferrous Sulfate] 325 mg PO DAILY 06/01/17 06/11/17 Unknown Previous Rx's Medication Instructions Recorded Last Taken Type Ondansetron [Zofran Odt] 4 mg PO TID #10 tab.rapdis 06/11/17 Unknown Rx Promethazine [Phenergan TAB] 25 mg PO Q8HR PRN #15 tab 06/11/17 Unknown Rx Allergies Allergy/AdvReac Type Severity Reaction Status Date / Time Tetanus Vaccines and Toxoid Allergy Intermediate Rash, Verified 06/01/17 14:25 [Tetanus Vaccines & Toxoid] Swelling adhesive tape Allergy Rash Verified 06/01/17 14:25 metoclopramide HCl Allergy AGITATED,VIOLENT Verified 06/01/17 14:25 [From Reglan] FEELINGS metronidazole [From Flagyl] AdvReac Vomiting Verified 07/23/17 09:17 FAT LIPIDS Allergy Mild Vomiting Uncoded 12/26/16 07:59 ED Review of Systems ROS: Stated complaint: POST OP SWELLING/PAIN Other details as noted in HPI Comment: All other systems reviewed and negative Constitutional: denies: chills, fever Respiratory: denies: cough, shortness of breath Cardiovascular: denies: chest pain, palpitations Gastrointestinal: denies: abdominal pain, nausea, vomiting Skin: denies: rash ED Past Medical Hx - Past Medical History Previous Medical History?: Yes Hx Hypertension: No Hx Diabetes: No Hx Deep Vein Thrombosis: Yes (Right arm) Hx GERD: Yes Hx Arthritis: Yes (Bilateral hip, L ankle) Hx Headaches / Migraines: Yes (MIGAINES) Hx Asthma: Yes (PER PATIENT SHE DOESN'T HAVE IT) Hx COPD: No Hx HIV: No Additional medical history: Gastric sleeve October 2016. Distant history of tubal ligation - Surgical History Past Surgical History?: Yes Additional Surgical History: s/p gastric sleeve 10/31/16. Breast reduction - Social History Smoking Status: Never Smoker Substance Use Type: None - Medications Home Medications: Home Medications Medication Instructions Recorded Confirmed Last Taken Type Acetaminophen with Codeine 5 ml PO PRN PRN 06/01/17 06/11/17 Unknown History [Acetaminop-Codeine 120-12 mg/5] Cyclobenzaprine [Flexeril] 10 mg PO TID PRN 06/01/17 06/11/17 Unknown History Ferrous Sulfate [Ferrous Sulfate] 325 mg PO DAILY 06/01/17 06/11/17 Unknown History Ondansetron [Zofran Odt] 4 mg PO TID #10 tab.rapdis 06/11/17 Unknown Rx Promethazine [Phenergan TAB] 25 mg PO Q8HR PRN #15 tab 06/11/17 Unknown Rx ED Physical Exam - General Limitations: No Limitations General appearance: alert, in no apparent distress - Head Head exam: Present: atraumatic, normocephalic, normal inspection - Eye Eye exam: Present: normal appearance - ENT ENT exam: Present: normal exam - Neck Neck exam: Present: normal inspection. Absent: tenderness, meningismus - Respiratory Respiratory exam: Present: normal lung sounds bilaterally, other (breasts exams , surgical wounds is dry, clean no discharge. Right breast surgical wound slightly tender to palpation. No wound dehiscence.) ED Course Vital Signs 07/23/17 07/23/17 07/23/17 09:11 18:30 18:45 Temperature 98.4 F Pulse Rate 94 H 91 H Respiratory 16 22 Rate Blood Pressure 122/70 121/74 O2 Sat by Pulse 100 100 95 Oximetry 07/23/17 07/23/17 07/23/17 19:00 19:15 19:30 Temperature Pulse Rate Respiratory Rate Blood Pressure 126/76 126/87 132/76 O2 Sat by Pulse 99 100 100 Oximetry 07/23/17 19:42 Temperature 98.4 F Pulse Rate Respiratory 19 Rate Blood Pressure O2 Sat by Pulse 100 Oximetry ED Medical Decision Making - Lab Data Result diagrams: 07/23/17 16:05 07/23/17 16:05 - Radiology Data Radiology results: report reviewed TECHNIQUE: Limited soft tissue ultrasound of the right breast PRIORS: None. FINDINGS: Examination in the region of the recent surgery shows 2 abnormal foci located toward the 8 o'clock position in the right breast. The 1st focus extends along the course of the posterior incision within the subcutaneous tissues. This represents a large mildly complex cystic structure with a thin outer wall. It measures 4.8 x 2.2 x 6.5 cm and likely represents a small seroma related to the incision. There is a 2nd small complex hypoechoic cystic area located inferior to the incision and proximal inferior to the nipple. This measures 1.9 x 0.6 x 1.4 cm. This may represent a small unresolved hematoma or complex seroma. IMPRESSION: 2 abnormal foci identified in the area of the recent surgery. The largest probably represents unresolved seroma and is associated with the incision. The smaller focus is probably an on resorptive hematoma and is posterior and inferior to the nipple. - Medical Decision Making Discussed with Dr. Delgado, I told him about right breast ultrasound, he advised patient can be discharged and call the office for follow-up. Critical care attestation.: If time is entered above; I have spent that time in minutes in the direct care of this critically ill patient, excluding procedure time. ED Disposition Clinical Impression: Pain of right breast Disposition: DC-01 TO HOME OR SELFCARE Is pt being admited?: No Condition: Stable Instructions: Acute Wound Care (ED) Referrals: VICTORIA DELGADO JR, MD [Staff Physician] - 2-3 Days
[2017-07-23] MEDS ORDERED: MYLICON PO ONE (21:00)
--- NOTE | 2017-07-23 21:47 | Ultrasound Report ---
FINAL REPORT EXAM: US BREAST RT LIMITED HISTORY: r/o abscess, s/p breast reduction on 07/10/17 . TECHNIQUE: Limited soft tissue ultrasound of the right breast PRIORS: None. FINDINGS: Examination in the region of the recent surgery shows 2 abnormal foci located toward the 8 o'clock position in the right breast. The 1st focus extends along the course of the posterior incision within the subcutaneous tissues. This represents a large mildly complex cystic structure with a thin outer wall. It measures 4.8 x 2.2 x 6.5 cm and likely represents a small seroma related to the incision. There is a 2nd small complex hypoechoic cystic area located inferior to the incision and proximal inferior to the nipple. This measures 1.9 x 0.6 x 1.4 cm. This may represent a small unresolved hematoma or complex seroma. IMPRESSION: 2 abnormal foci identified in the area of the recent surgery. The largest probably represents unresolved seroma and is associated with the incision. The smaller focus is probably an on resorptive hematoma and is posterior and inferior to the nipple.
[2017-07-23] MEDS ORDERED: NORCO 5/325 PO ONE (23:43)
[2017-07-23 23:54] VITALS: BP 110/67
== END 2017-07-23 23:54 | disposition home or self-care (01) ==
LOC: ED 08:57
DX: N64.4 Mastodynia (principal); I82.409 Acute embolism and thrombosis of unspecified deep veins of unspecified lower extremity; K21.9 Gastro-esophageal reflux disease without esophagitis; M19.90 Unspecified osteoarthritis, unspecified site; J45.909 Unspecified asthma, uncomplicated; Z98.890 Other specified postprocedural states; Z88.8 Allergy status to other drugs, medicaments and biological substances; Z91.048 Other nonmedicinal substance allergy status
CPT/HCPCS: 36415; 76642; 80048; 85025; 96372; 99284; J2270; J2405

== ENCOUNTER 2019-01-08 06:30 | Day surgery (SDC) | payer MEDICAID, MEDICARE, SELFPAY ==
[2019-01-06 10:12] LABS: Basophils # (Auto) 0.1 K/mm3 (0.0-0.1); Basophils % (Auto) 0.7 % (0.0-1.8); Eosinophils % (Auto) 0.5 % (0.0-4.3); Hematocrit 36.3 % (30.3-42.9); Hemoglobin 12.3 gm/dl (10.1-14.3); Lymphocytes # (Auto) 3.1 K/mm3 (1.2-5.4); Lymphocytes % (Auto) 34.1 % (13.4-35.0); Mean Corpuscular HGB Conc 34 % (30-34); Mean Corpuscular Volume 94 fl (79-97); Monocytes # (Auto) 0.4 K/mm3 (0.0-0.8); Monocytes % (Auto) 4.3 % (0.0-7.3); Platelet Count 203 K/mm3 (140-440); Red Blood Count 3.88 M/mm3 (3.65-5.03); Red Cell Distribution Width 12.9 % (13.2-15.2)
[2019-01-06 10:27] LABS: Alanine Aminotransferase 22 units/L (7-56); Albumin 3.7 g/dL (3.9-5); BUN/Creatinine Ratio 12; Blood Urea Nitrogen 7 mg/dL (7-17); Calcium 8.3 mg/dL (8.4-10.2); Hemolysis Index 13
--- NOTE | 2019-01-06 10:30 | Anesthesia Consultation ---
Anesthesia Consult and Med Hx Date of service: 01/08/19 - Airway Anesthetic Teeth Evaluation: Good ROM Head & Neck: Adequate Mental/Hyoid Distance: Adequate Mallampati Class: Class II Intubation Access Assessment: Good - Pulmonary Exam CTA: Yes - Cardiac Exam Cardiac Exam: No Murmur - Pre-Operative Health Status ASA Pre-Surgery Classification: ASA2 Proposed Anesthetic Plan: General - Pre-Anesthesia Comment Pre-Anesthesia Comments: 38yr old Female history of Crohns, Anemia, S/p Gastric bypass, BTL and Tubal ligation. - Pulmonary Hx Smoking: No Hx Asthma: No Hx Respiratory Symptoms: No SOB: No COPD: No - Cardiovascular System Hx Hypertension: No - Central Nervous System Hx Neuromuscular Disorder: Yes (fibromyalgia) Hx Back Pain: Yes (HERNIATED DISC X3: cervical and lumber, edema BLE) Hx Psychiatric Problems: Yes - Gastrointestinal Hx Gastroesophageal Reflux Disease: No (was a problem immediately after Gastric bypass but no longer an issue) - Endocrine Hx Insulin Dependent Diabetes: No - Hematic Hx Anemia: Yes - Other Systems Hx Alcohol Use: No Hx Substance Use: No Hx Cancer: No Hx Obesity: Yes
--- NOTE | 2019-01-08 07:17 | Short Stay Summary ---
Short Stay Documentation Date of service: 01/08/19 - Allergies and Medications Current Medications: Allergies Tetanus Vaccines and Toxoid [Tetanus Vaccines & Toxoid] Allergy (Intermediate, Verified 01/02/19 09:50) Rash, Swelling SWELLING adhesive tape Allergy (Verified 01/02/19 09:50) Rash metoclopramide HCl [From Reglan] Allergy (Verified 01/02/19 09:50) AGITATED,VIOLENT FEELINGS metronidazole [From Flagyl] Adverse Reaction (Verified 01/02/19 09:50) Vomiting FAT LIPIDS Allergy (Mild, Uncoded 01/02/19 09:50) Vomiting Home Medications Medication Instructions Recorded Confirmed Last Taken Type Ferrous Sulfate 325 mg PO TID 06/01/17 01/06/19 Unknown History Adalimumab [Humira(Cf) Pen] 40 mg SQ Q2W 01/06/19 01/06/19 Unknown History HYDROcodone/APAP 7.5-325 [[place] 1 tab PO BID 01/06/19 01/06/19 Unknown History 7.5-325 mg TAB] Mercaptopurine 50 mg PO DAILY 01/06/19 01/06/19 Unknown History Nortriptyline [Pamelor] 25 mg PO BID 01/06/19 01/06/19 Unknown History QUEtiapine [SEROquel] 100 mg PO BID 01/06/19 01/06/19 Unknown History hydroCHLOROthiazide [HCTZ] 25 mg PO DAILY 01/06/19 01/06/19 Unknown History tiZANidine [Zanaflex 4mg TAB] 4 mg PO BID 01/06/19 01/06/19 Unknown History - Disposition Condition at discharge: Good Disposition: DC-01 TO HOME OR SELFCARE Short Stay Discharge Plan Additional Instructions: Patient may follow up with Dr. Moore 2-4 weeks Prescriptions: Ibuprofen [Motrin] 800 mg PO Q8HR PRN #60 tablet PRN Reason: Pain, Mild (1-3) HYDROcodone/APAP 5-325 [[place] 5/325] 1 each PO Q6HR PRN #20 tablet PRN Reason: Pain
[2019-01-08] MEDS ORDERED: PEPCID IV NR (07:56)
[2019-01-08] MEDS ORDERED: LACTATED RINGERS 1,000 ML IV SCH (08:00)
[2019-01-08] MEDS ORDERED: VERSED IV NR (08:00)
[2019-01-08] MEDS ORDERED: SUBLIMAZE ONE (08:13)
[2019-01-08] MEDS ORDERED: ZEMURON IV ONE (08:13)
[2019-01-08] MEDS ORDERED: DIPRIVAN 10 MG/ML IV ONE (08:13)
--- NOTE | 2019-01-08 08:21 | Short Stay Summary ---
Short Stay Documentation Date of service: 01/08/19 Narrative H&P: 38-year-old black female with a history of dysfunctional uterine bleeding. The patient has attempted medical management without significant improvement in her symptoms. The patient has elected to proceed with surgical management of her abnormal bleeding. - History Principal diagnosis: dysfunctional uterine bleeding Past Medical History: DVT, migraines Past Surgical History: Other (gastric sleeve) Social history: single - Allergies and Medications Current Medications: Allergies Tetanus Vaccines and Toxoid [Tetanus Vaccines & Toxoid] Allergy (Intermediate, Verified 01/02/19 09:50) Rash, Swelling SWELLING adhesive tape Allergy (Verified 01/02/19 09:50) Rash metoclopramide HCl [From Reglan] Allergy (Verified 01/02/19 09:50) AGITATED,VIOLENT FEELINGS metronidazole [From Flagyl] Adverse Reaction (Verified 01/02/19 09:50) Vomiting FAT LIPIDS Allergy (Mild, Uncoded 01/02/19 09:50) Vomiting Home Medications Medication Instructions Recorded Confirmed Last Taken Type Ferrous Sulfate 325 mg PO TID 06/01/17 01/06/19 Unknown History Adalimumab [Humira(Cf) Pen] 40 mg SQ Q2W 01/06/19 01/06/19 Unknown History HYDROcodone/APAP 7.5-325 [[place] 1 tab PO BID 01/06/19 01/06/19 Unknown History 7.5-325 mg TAB] Mercaptopurine 50 mg PO DAILY 01/06/19 01/06/19 Unknown History Nortriptyline [Pamelor] 25 mg PO BID 01/06/19 01/06/19 Unknown History QUEtiapine [SEROquel] 100 mg PO BID 01/06/19 01/06/19 Unknown History hydroCHLOROthiazide [HCTZ] 25 mg PO DAILY 01/06/19 01/06/19 Unknown History tiZANidine [Zanaflex 4mg TAB] 4 mg PO BID 01/06/19 01/06/19 Unknown History Active Medications Famotidine (Pepcid) 40 mg IV ONCE NR Stop: 01/08/19 16:00 Lactated Ringer's (Lactated Ringers) 1,000 mls @ 75 mls/hr IV DIRECT JESSE Midazolam HCl (Versed) 2 mg IV PREOP NR Stop: 01/08/19 23:59 - Physical exam General appearance: no acute distress Integumentary: no rash HEENT: Atraumatic Lungs: Clear to auscultation Breasts: deferred Heart: Regular rate Gastrointestinal: normal Female Genitourinary: deferred Rectal Exam: deferred Extremities: no ischemia Neurological: Normal gait - Brief post op/procedure progress note Date of procedure: 01/08/19 Pre-op diagnosis: dysfunctional uterine bleeding Post-op diagnosis: same Procedure: Hysteroscopy Endometrial ablation via NovaSure Anesthesia: GETA Surgeon: JASPER PAN Estimated blood loss: minimal Pathology: none Condition: stable - Hospital course Hospital course: The patient was admitted at [facility] and underwent an endometrial ablation for dysfunctional uterine bleeding. Please see operative note for details of surgery. Her postoperative course was uneventful. - Disposition Condition at discharge: Good Disposition: DC-01 TO HOME OR SELFCARE Short Stay Discharge Plan Activity: other (pelvic rest for 1 week) Diet: regular Additional Instructions: Patient may follow up with Dr. Moore 2-4 weeks Prescriptions: Ibuprofen [Motrin] 800 mg PO Q8HR PRN #60 tablet PRN Reason: Pain, Mild (1-3) HYDROcodone/APAP 5-325 [[place] 5/325] 1 each PO Q6HR PRN #20 tablet PRN Reason: Pain
[2019-01-08] MEDS ORDERED: DILAUDID IV PRN (08:24)
[2019-01-08] MEDS ORDERED: ZOFRAN IV PRN (08:24)
--- NOTE | 2019-01-08 08:24 | Anesthesia Day of Surgery ---
Anesthesia Day of Surgery - Day of Surgery Patient Examined: Yes Patient H&P Reviewed: Yes Patient is NPO: Yes
[2019-01-08] MEDS ORDERED: SILVER NITRATE TP ONE (08:40)
[2019-01-08] MEDS ORDERED: ZOFRAN ONE (09:03)
[2019-01-08] MEDS ORDERED: LOPRESSOR IV ONE (09:03)
[2019-01-08] MEDS ORDERED: TORADOL ONE (09:03)
[2019-01-08] MEDS ORDERED: DECADRON ONE (09:03)
--- NOTE | 2019-01-08 09:17 | Operative Report ---
Operative Report Operative Report: Date of procedure: 01/08/2019 Pre-operative diagnosis: DysFunctional uterine bleeding Post-operative diagnosis: Same as above Procedure name(s): Hysteroscopy; endometrial ablation via NovaSure Surgeon: Nancy Quinn M.D. Biometric Fingerprinting Technician: None Anesthesia: Gen. endotracheal anesthesia Findings normal endometrial cavity Indication: 38-year-old black female with a history of dysfunctional uterine bleeding. The patient elected to undergo surgical management of her symptoms. Procedure The patient was taken to the operating room and given general tracheal anesthesia without complication. The patient was prepped and draped in a normal sterile fashion. A bivalve speculum was placed in the patient's vagina single- tooth tenaculums placed on the anterior lip of the cervix. The cervical os was dilated with graduated dilators. A uterine sound was inserted. The hysteroscope was then placed. Insufflation of the uterine cavity was performed with normal saline. Gen. survey of the uterine cavity revealed normal endometrial cavity. The hysteroscope was then removed. The NovaSure device was then inserted. The endometrial length was 5.5 cm and the uterine width was 0.2 cm. The device was engaged and it passed the surveillance of the uterine cavity. The NovaSure device was then deployed with a energy of 127 W that lasted for 2 minutes. The NovaSure device was then removed. The hysteroscope was again reinserted. There was evidence of charring of the endometrial surface. The remainder of the vaginal instruments were then removed atraumatically. The patient was then successfully extubated taken to the recovery room. All sponge laps and needle counts were correct 2.
[2019-01-08] MEDS ORDERED: NORCO 5/325 PO PRN (10:00)
[2019-01-08 10:14] VITALS: BP 127/79
== END 2019-01-08 11:05 | disposition home or self-care (01) ==
LOC: OR 06:30
PROVIDERS: ATTEND Obstetrics & Gynecology
DX: N93.8 Other specified abnormal uterine and vaginal bleeding (principal); K21.9 Gastro-esophageal reflux disease without esophagitis; E11.9 Type 2 diabetes mellitus without complications; M79.7 Fibromyalgia; G43.909 Migraine, unspecified, not intractable, without status migrainosus; M19.90 Unspecified osteoarthritis, unspecified site; F32.9 Major depressive disorder, single episode, unspecified; E66.9 Obesity, unspecified; Z79.899 Other long term (current) drug therapy; Z98.84 Bariatric surgery status; Z98.890 Other specified postprocedural states; Z86.718 Personal history of other venous thrombosis and embolism; Z68.29 Body mass index [BMI] 29.0-29.9, adult; Z98.51 Tubal ligation status; Z86.2 Personal history of diseases of the blood and blood-forming organs and certain disorders involving the immune mechanism; Z88.8 Allergy status to other drugs, medicaments and biological substances
CPT/HCPCS: 36415; 58563; 80053; 84703; 85025; J1100; J1170; J1885; J2250; J2405; J2704; J3010; J7120